=== PATIENT | female | born 1995 | race Caucasian/White ===

== ENCOUNTER 2019-02-06 09:18 | Emergency (ER) | payer MEDICAID ==
[2019-02-06] MEDS: BELLADONNA/PHENOBARBITAL TAB PO (10:00)
[2019-02-06] MEDS: ONDANSETRON (ODT) 4 MG TAB ODT (10:00)
[2019-02-06] MEDS: FAMOTIDINE 20 MG TAB PO (10:00)
[2019-02-06] MEDS: LIDOCAINE/MYLANTA 40 ML BTL PO (10:00)
[2019-02-06 10:11] LABS: ADD MAN DIFF? NO
[2019-02-06 10:22] LABS: BASOPHILS % 0.4 % (0.0-2.0); EOSINOPHILS # 0.4 10^3/ul (0.0-0.5); EOSINOPHILS % 4.6 % (0.0-7.0); HEMATOCRIT 42.9 % (37.0-47.0); HEMOGLOBIN 14.5 g/dl (12.0-16.0); LYMPHOCYTES # 2.4 10^3/ul (0.8-2.9); LYMPHOCYTES % 24.8 % (15.0-51.0); MEAN CORPUSCULAR HEMOGLOBIN 30.7 pg (29.0-33.0); MEAN CORPUSCULAR HGB CONC 33.8 g/dl (32.0-37.0); MEAN CORPUSCULAR VOLUME 90.7 fl (82.0-101.0); MEAN PLATELET VOLUME 10.3 fl (7.4-10.4); MONOCYTE # 0.6 10^3/ul (0.3-0.9); MONOCYTES % 6.4 % (0.0-11.0); NEUTROPHILS % 63.5 % (39.0-77.0); PLATELET COUNT 253 10^3/UL (140-415); RED BLOOD COUNT 4.73 10^6/ul (4.20-5.40); RED CELL DISTRIBUTION WIDTH 12.2 % (11.5-14.5)
[2019-02-06 10:22] LABS: WHITE BLOOD COUNT 9.5 10^3/ul (4.8-10.8)
[2019-02-06 10:27] LABS: UR BACTERIA FEW /HPF (NONE SEEN); UR RBC 1 /HPF (0-5); UR SQUAMOUS EPITHELIAL CELL MODERATE /HPF (FEW); UR WBC 1 /HPF (0-5)
[2019-02-06 10:34] LABS: ADD UMIC NO; UR ASCORBIC ACID NEGATIVE (NEGATIVE); UR BILIRUBIN (Dip) NEGATIVE (NEGATIVE); UR BLOOD (Dip) NEGATIVE (NEGATIVE); UR CLARITY SLIGHTLY CLOUDY (CLEAR); UR COLOR YELLOW (YELLOW); UR GLUCOSE (Dip) NEGATIVE (NEGATIVE); UR KETONES (Dip) NEGATIVE (NEGATIVE); UR LEUKOCYTE ESTERASE (Dip) NEGATIVE Leu/ul (NEGATIVE); UR NITRITE (Dip) NEGATIVE (NEGATIVE); UR SPECIFIC GRAVITY (Dip) 1.016 (1.003-1.030); UR TOTAL PROTEIN (Dip) NEGATIVE (NEGATIVE); UR UROBILINOGEN (Dip) NEGATIVE (NEGATIVE)
[2019-02-06 11:16] LABS: ALANINE AMINOTRANSFERASE 23 IU/L (13-69); ALBUMIN 4.2 g/dl (3.3-4.9); ALKALINE PHOSPHATASE 85 IU/L (42-121); ANION GAP 9 (5-13); ASPARTATE AMINO TRANSFERASE 20 IU/L (15-46); BILIRUBIN,INDIRECT 0.7 mg/dl (0-1.1); BILIRUBIN,TOTAL 0.7 mg/dl (0.2-1.3); BLOOD UREA NITROGEN 18 mg/dl (7-20); CALCIUM 9.9 mg/dl (8.4-10.2); CARBON DIOXIDE 25 mmol/L (21-31); CHLORIDE 110 mmol/L (97-110); CREATININE 0.49 mg/dl (0.44-1.00); Estimated GFR > 60 mL/min (>60); GLUCOSE 86 mg/dl (70-220); LIPASE 67 U/L (23-300); POTASSIUM 4.4 mmol/L (3.5-5.1); SODIUM 144 mmol/L (135-144)
== END 2019-02-06 12:38 | disposition home or self-care (01) ==
LOC: FTE 09:18
DX: K21.9 Gastro-esophageal reflux disease without esophagitis (principal); K76.0 Fatty (change of) liver, not elsewhere classified
CPT/HCPCS: 76705; 80053; 81001; 81003; 81025; 83690; 85025; 99284-25